=== PATIENT | male | born 1955 | race Caucasian/White ===

== ENCOUNTER → 2021-01-21 | Outpatient (CLI) | payer MEDICARE ==
[~2021-01-21] MED LIST: IOHEXOL 350 MG/ML 100 ML VIAL. IV ONE
--- NOTE | 2021-01-21 17:52 | RAD ---
Exam: CT of chest with contrast INDICATION: Fatigue, short of air TECHNIQUE: Sequential axial images through the chest obtained following the administration of 100 mL of Isovue-370 IV contrast. Sagittal and coronal reformatted images were reconstructed from the axial data and reviewed. 3-D reformatted images were reconstructed from the axial data and reviewed. Exposure: One or more of the following in the visualized dose reduction techniques were utilized for this examination: 1. Automated exposure control 2. Adjustment of the MA and/or KV according to patient size 3. Use of iterative of reconstructive technique Comparisons: None FINDINGS: There is a 2 cm nodule in the left lobe of the thyroid. Several prominent and mildly enlarged left hi lar lymph nodes are noted. Heart size is normal. No pericardial effusion. Thoracic aorta has a normal course and caliber. Pulmon demario artery is not enlarged. No pulmonary embolus identified within the main, lobar or proximal segmen lupe pulmonary arteries. Evaluation distally limited secondary to contrast bolus timing and respirator y motion. Airways are patent. There is consolidative changes noted in the left lower lobe. Mild centrilobular e mphysematous change noted at the lung apices. No suspicious lung nodules. No pleural effusion or thickening. Cholelithiasis. No suspicious osseous lesions or acute fractures. IMPRESSION: 1. No pulmonary embolus identified within the main, lobar or proximal segmental pulmonary arteries. 2. Consolidative changes noted in the left lower lobe favored be infectious or inflammatory in etiol ogy. 3. Left hilar lymphadenopathy, likely reactive to the above process. Electronically signed by: Lorie Doe MD (01/21/2021 5:50 PM) [facility]
[2021-01-22 07:15] LABS: CALCIUM 7.9 mg/dL (8.5-10.1); CREATININE 1.3 mg/dL (0.7-1.3); GFR 55.2; POTASSIUM 3.1 mmol/L (3.5-5.1)
[2021-01-22 07:24] LABS: ALBUMIN 2.4 g/dL (3.4-5.0); ALBUMIN/GLOBULIN RATIO 0.7 (1.0-1.7); TOTAL BILIRUBIN 0.8 mg/dL (0.2-1.0); TOTAL PROTEIN 5.9 g/dL (6.4-8.2)
== END ==
LOC: CT 16:49
PROVIDERS: ATTEND Internal Medicine
DX: J43.2 Centrilobular emphysema (principal); I82.4Y3 Acute embolism and thrombosis of unspecified deep veins of proximal lower extremity, bilateral; R59.0 Localized enlarged lymph nodes; R53.83 Other fatigue; E04.1 Nontoxic single thyroid nodule; K80.20 Calculus of gallbladder without cholecystitis without obstruction
CPT/HCPCS: 36415; 71275; 83880; 85610; Q9967; 80053

== ENCOUNTER → 2021-02-11 | Outpatient (CLI) | payer MEDICARE ==
--- NOTE | 2021-02-11 15:49 | RAD ---
. EXAM: THYROID ULTRASOUND. HISTORY: Thyroid nodule. COMPARISON: None. FINDINGS: Sonographic evaluation of the thyroid gland was performed and evaluated using ACR TI-RADS c riteria. Right lobe: The right lobe measures 4.2 x 2.5 x 2.3 cm. The parenchyma is mildly heterogeneous and hy poechoic. A 7 mm cyst in the interpolar region appears benign. Left lobe: The left lobe measures 4.6 x 2.8 x 2.6 cm. The parenchyma is mildly heterogeneous and hypo echoic. Nodule #1. Maximum size: 2.1 cm; Other 2 dimensions 2.0 x 1.8 cm. Location: mid pole. Solid, rim calcified, hypo echoic, antiparallel. ACR TI-RADS risk category: TR5 (7 points): FNA if 1 cm, follow-up if 0.5-0.9 cm every year for 5 year s. Isthmus: The isthmus measures 6 mm. IMPRESSION/RECOMMENDATION: 1. TI-RADS 5 2.1 cm nodule in the left interpolar region. Ultrasound-guided fine-needle aspiration is recommended to exclude malignancy if not already performed. Electronically signed by: Ayesha Villarreal MD (02/11/2021 3:47 PM) [id number]
== END ==
LOC: US 13:42
PROVIDERS: ATTEND Internal Medicine
DX: E04.2 Nontoxic multinodular goiter (principal)
CPT/HCPCS: 76536